=== PATIENT | male | born 1985 | race Caucasian/White ===

== ENCOUNTER 2016-03-23 23:36 | Emergency (ER) | payer OTHER ==
[~2016-03-23] VITALS: Ht 182.9 cm; Wt 81.9 kg
[~2016-03-23 23:36] MED LIST: ALBU1AER9 INH
[2016-03-23 23:44] VITALS: TEMP 36.9; Ht 182.9 cm; Wt 81.9 kg
[2016-03-24 01:23] VITALS: BP 145/71; PULSE 70; O2SAT 95
--- NOTE | 2016-03-24 03:51 | EMERGENCY ROOM VISIT NOTE ---
ED Visit Note First contact with patient: 23:57 CHIEF COMPLAINT: Hand injury HISTORY OF PRESENT ILLNESS: This 30-year-old male patient presented to the emergency department after they injured the right hand last night. The patient does not recall the exact mechanism of injury, as he states that he was drinking for the [employer] . He believes that he may have punched a wall. The patient rates the pain as sharp and 6/10. The patient denies any numbness or tingling. The patient does not have injuries to the wrist. The patient has not had a previous fracture to this hand. REVIEW OF SYSTEMS: A 6 system review of systems was completed with positives and pertinent negatives in the HPI. ALLERGIES: No known allergies MEDICATIONS: No chronic medications PMH: Otherwise healthy SOCIAL HISTORY: Employed and lives locally PHYSICAL EXAM: Vital Signs: Reviewed Nurse's notes, vital signs stable. GENERAL : White male, in no acute distress, but appears to be in pain, well-developed, well-nourished. MUSCULOSKELETAL: There is no deformity of the right hand. There is tenderness over the fourth and fifth metacarpals. There is no thenar or hypothenar eminence atrophy. Normal thumb opposition to all fingers. Lead Cook strength 1/5. There is no laceration. Capillary refill less than 2 seconds. No tenderness of the fingers or wrist. Full range of motion of the wrist. No snuff box tenderness. Radial pulse 2+. NEURO: Alert and oriented to person, place, and time. Normal sensation to light and sharp touch. EMERGENCY DEPARTMENT COURSE: Physical exam and history were performed. Nursing notes and EMR were reviewed. The patient appears to have right hand pain, and believes that he punched a wall last night while drinking. X-ray was obtained and shows a fourth metacarpal fracture. The patient was placed in an Ortho- Glass splint with neurovascular status remaining intact after placement. The patient will need to follow with orthopedics this week for further care and management. He may use [id number] analgesics and was instructed on supportive care. He was otherwise invited back to the ER with any new, worsening, or concerning symptoms. Problem List Medical Problems: (1) ASTHMA, UNSPECIFIED, W (ACUTE) EXACERBATION Status: Chronic (2) HISTORY OF TOBACCO USE Status: Chronic (3) Pain, dental Status: Resolved (4) Pain, dental Status: Resolved Current/Historical Medications No Active Prescriptions or Reported Meds Allergies Coded Allergies: No Known Allergies (Verified , 03/07/14) NKDA Vital Signs Date Time Temp Pulse Resp B/P Pulse Ox O2 Delivery O2 Flow Rate FiO2 03/24/16 01:23 70 18 145/71 95 03/23/16 23:44 36.9 83 18 136/78 95 Room Air Departure Information Impression Primary Impression: Closed right hand fracture Dispostion Home / Self-Care Condition GOOD Prescriptions No Active Prescriptions or Reported Meds Referrals Dov White M.D. Forms HOME CARE DOCUMENTATION FORM, IMPORTANT VISIT INFORMATION Patient Instructions A Signature Page, My [facility] Additional Instructions You were seen and evaluated today on an emergency basis only. This is not a substitute for, or an effort to provide, complete comprehensive medical care. It is not possible to recognize and treat all injuries or illnesses in a single emergency department visit. For this reason it is recommended that you followup with [facility] orthopedics , Dr. White's office, for ongoing care and evaluation. Call the office in the morning to make your appointment. For baseline pain relief you may alternate ibuprofen and acetaminophen every 4 hours for pain control. Take 600 mg ibuprofen (Advil) and then 4 hours later take 1000 mg acetaminophen (Tylenol). Do not take more than 3000 mg acetaminophen in a single day. Do not get the splint wet. You are welcome to return to the emergency department anytime with new, worsening, or concerning symptoms.
--- NOTE | 2016-03-24 07:38 | DIAGNOSTIC IMAGING REPORT ---
RIGHT HAND 3 VIEWS HISTORY: Right hand injury Right COMPARISON: None. FINDINGS: Transverse midshaft fracture at the fourth metacarpal. Mild soft tissue swelling within the dorsum of the hand. The fracture is not significantly displaced. No radiopaque foreign bodies. IMPRESSION: Nondisplaced transverse midshaft fracture at the right fourth metacarpal. Electronically signed by: Gautam Olmos M.D. 03/24/2016 7:36 AM
== END 2016-03-24 01:24 | disposition home or self-care (01) ==
LOC: C.EDB 23:39
DX: S62.324A Displaced fracture of shaft of fourth metacarpal bone, right hand, initial encounter for closed fracture (principal); W22.09XA Striking against other stationary object, initial encounter; Y93.89 Activity, other specified; Y99.8 Other external cause status; J45.909 Unspecified asthma, uncomplicated; Z87.891 Personal history of nicotine dependence